=== PATIENT | female | born 2000 | race Two or more races ===

== ENCOUNTER 2020-09-12 22:20 | Observation (INO) | payer OTHER, SELFPAY ==
[~2020-09-12] VITALS: Ht 162.6 cm; Wt 102.5 kg
[2020-09-12 23:24] VITALS: BP 123/59
[2020-09-12] MEDS ORDERED: BRE5 PO (23:45)
[2020-09-12] MEDS ORDERED: FERR-212 PO (23:45)
[2020-09-12] MEDS ORDERED: PNV91TAB8 PO (23:45)
--- NOTE | 2020-09-13 06:58 | NUR ---
PATIENT HAS BEEN SCREENED AND CATEGORIZED LOW NUTRITION RISK. PATIENT WILL BE SEEN WITHIN 7 DAYS OF ADMISSION. 09/20/20 GAGE LOZOYA MS, RDN
== END 2020-09-13 09:30 | disposition home or self-care (01) ==
LOC: MLD 22:20
PROVIDERS: ADMIT Obstetrics & Gynecology; ATTEND Obstetrics & Gynecology
DX: O62.9 Abnormality of forces of labor, unspecified (principal); Z3A.33 33 weeks gestation of pregnancy
CPT/HCPCS: 76815; G0378

== ENCOUNTER 2020-11-06 10:02 | Observation (INO) | payer OTHER ==
[~2020-11-06] VITALS: Ht 162.6 cm; Wt 108.0 kg
[~2020-11-06 10:02] MED LIST: BRE5 PO; FERR-212 PO; PNV91TAB8 PO
--- NOTE | 2020-11-06 10:19 | NUR ---
PATIENT HAS BEEN SCREENED AND CATEGORIZED LOW NUTRITION RISK. PATIENT WILL BE SEEN WITHIN 7 DAYS OF ADMISSION. 11/13/[address]
[2020-11-06 10:33] VITALS: BP 129/69
== END 2020-11-06 14:25 | disposition home or self-care (01) ==
LOC: MLD 10:02
PROVIDERS: ADMIT Obstetrics & Gynecology; ATTEND Obstetrics & Gynecology
DX: O62.9 Abnormality of forces of labor, unspecified (principal); Z3A.37 37 weeks gestation of pregnancy
CPT/HCPCS: 76815; G0378; 59025; 81000

== ENCOUNTER 2020-11-13 15:43 | Inpatient (IN) | payer OTHER, SELFPAY ==
[~2020-11-13] VITALS: Ht 162.6 cm; Wt 111.6 kg
[~2020-11-13 15:43] MED LIST changes: -BRE5 PO
[2020-11-13] MEDS ORDERED: METHYLERGONOVINE 0.2 MG/ML AMP IM PRN (16:40)
[2020-11-13] MEDS ORDERED: CARBOPROST 250 MCG/ML AMP IM PRN (16:40)
[2020-11-13] MEDS ORDERED: LACTATED RINGERS 500 ML IV SCH (16:40)
[2020-11-13] MEDS ORDERED: OXYTOCIN 10 UNITS/ML VIAL IM SCH (16:40)
[2020-11-13 17:41] LABS: BASOPHILS # (AUTO) 0.1 K/uL (0.00-0.22); BASOPHILS % (AUTO) 0.8 % (0.0-2.0); EOSINOPHILS % (AUTO) 0.4 % (0.0-4.0); HEMATOCRIT 38.2 % (36-48); HEMOGLOBIN 12.7 g/dL (12.0-16.0); LYMPHOCYTES # (AUTO) 2.4 K/uL (2.5-16.5); LYMPHOCYTES % (AUTO) 20.9 % (20.5-51.1); MEAN CORPUSCULAR HEMOGLOBIN 29 pg (27-31); MEAN CORPUSCULAR HGB CONC 33 g/dL (33-37); MEAN CORPUSCULAR VOLUME 87.7 fL (80-94); MONOCYTES # (AUTO) 0.8 K/uL (0.8-1.0); MONOCYTES % (AUTO) 7.1 % (1.7-9.3); NEUTROPHILS # (AUTO) 8.2 K/uL (1.8-7.7); NEUTROPHILS % (AUTO) 70.8 % (42.2-75.2); PLATELET COUNT (AUTO) 278 K/uL (140-450); RED BLOOD CELL COUNT(AUTO) 4.35 MIL/uL (4.20-5.40); RED CELL DISTRIBUTION WIDTH 14.7 % (11.6-13.7); WHITE BLOOD COUNT (AUTO) 11.6 K/uL (4.5-11.0)
[2020-11-13 17:58] LABS: APPEARANCE,URINE CLEAR (CLEAR); BILIRUBIN,URINE NEGATIVE (NEGATIVE); BLOOD, URINE NEGATIVE (NEGATIVE); COLOR,URINE YELLOW (YELLOW); LEUKOCYTE ESTERASE ,URINE 1+ (NEGATIVE); NITRITE, URINE NEGATIVE (NEGATIVE); UGLUCOSE NEGATIVE (NEGATIVE)
[2020-11-13 18:02] LABS: ALBUMIN 2.8 g/dL (3.4-5.0); CARBON DIOXIDE 20.8 mmol/L (21-32); CREATININE 0.7 mg/dL (0.6-1.3); POTASSIUM 3.8 mmol/L (3.5-5.1); TOTAL BILIRUBIN 0.3 mg/dL (0.0-1.0)
[2020-11-13 18:07] LABS: RBC,URINE 0-5 /HPF (0-5)
[2020-11-13 18:40] VITALS: BP 131/69
[2020-11-13] MEDS: MISOPROSTOL 25 MCG TAB VG SCH (20:50)
[2020-11-13] MEDS ORDERED: OXYTOCIN 20 UNITS in LACTATED RINGERS 1,000 ML IV SCH (21:05)
[2020-11-14] MEDS: MISOPROSTOL 25 MCG TAB VG SCH
[2020-11-14] MEDS ORDERED: OXYTOCIN 20 UNITS/LR PREMIX 1,000 ML IV ONE (03:17)
[2020-11-14] MEDS: LACTATED RINGERS 1,000 ML IV SCH ×4 (03:34→17:09)
[2020-11-14] MEDS ORDERED: ROPIVACAINE 0.2%/NS PREMIX 200 ML EPI ONE (08:44)
[2020-11-14] MEDS ORDERED: ROPIVACAINE 0.2%/NS PREMIX 100 ML EPI SCH (09:20)
[2020-11-14] MEDS ORDERED: AMPICILLIN 2,000 MG VIAL ONE ×2 (18:00→23:18)
[2020-11-14] MEDS: AMPICILLIN 2,000 MG in NACL 0.9% 100 ML IV SCH (18:07)
[2020-11-15] MEDS: NALBUPHINE 10 MG/ML AMP IVP PRN ×2 (00:29→05:29)
[2020-11-15] MEDS: PROMETHAZINE 25 MG/ML VIAL IVP PRN ×2 (00:30→05:28)
[2020-11-15] MEDS: LACTATED RINGERS 1,000 ML IV SCH ×2 (02:39→08:40)
[2020-11-15] MEDS ORDERED: ROPIVACAINE 0.2%/NS PREMIX 200 ML EPI ONE (04:49)
[2020-11-15] MEDS ORDERED: AMPICILLIN 2,000 MG VIAL ONE (05:11)
[2020-11-15] MEDS: AMPICILLIN 2,000 MG in NACL 0.9% 100 ML IV SCH (06:00)
[2020-11-15] MEDS ORDERED: LIDOCAINE MPF 1% 10 MG/ML VIAL INJ SCH (07:35)
--- NOTE | 2020-11-15 08:18 | NUR ---
PATIENT HAS BEEN SCREENED AND CATEGORIZED LOW NUTRITION RISK. PATIENT WILL BE SEEN WITHIN 7 DAYS OF ADMISSION. 11/20/20 NIC WHITAKER MBA, RD
[2020-11-15] MEDS ORDERED: LIDOCAINE 1% 500 MG/50 ML VIAL ONE (09:58)
[2020-11-15] MEDS ORDERED: OXYTOCIN 20 UNITS/LR PREMIX 1,000 ML IV ONE (11:34)
[2020-11-15] MEDS ORDERED: OXYTOCIN 20 UNITS in LACTATED RINGERS 1,000 ML IV SCH (13:10)
[2020-11-15] MEDS ORDERED: MEASLES, MUMPS, AND RUBELLA 1 VIAL SQVAC PRN (13:10)
[2020-11-15] MEDS ORDERED: ACETAMINOPHEN 325 MG TAB PO PRN (13:10)
[2020-11-15] MEDS ORDERED: DOCUSATE SODIUM 100 MG GELCAP PO PRN (13:10)
[2020-11-15] MEDS ORDERED: IBUPROFEN 800 MG TAB PO SCH (13:10)
[2020-11-15] MEDS ORDERED: IBUPROFEN 800 MG TAB ONE (13:14)
[2020-11-15] MEDS: IBUPROFEN 600 MG TAB PO PRN (20:00)
[2020-11-16] MEDS: IBUPROFEN 600 MG TAB PO PRN (04:11)
[2020-11-16] MEDS ORDERED: MEASLES, MUMPS, AND RUBELLA 1 VIAL SQVAC PRN (07:55)
[2020-11-16 08:30] LABS: BASOPHILS # (AUTO) 0.1 K/uL (0.00-0.22); BASOPHILS % (AUTO) 0.6 % (0.0-2.0); EOSINOPHILS # (AUTO) 0.1 K/uL (0-0.4); EOSINOPHILS % (AUTO) 0.8 % (0.0-4.0); HEMOGLOBIN 11.1 g/dL (12.0-16.0); LYMPHOCYTES # (AUTO) 4.1 K/uL (2.5-16.5); LYMPHOCYTES % (AUTO) 30.3 % (20.5-51.1); MEAN CORPUSCULAR HEMOGLOBIN 30 pg (27-31); MEAN CORPUSCULAR HGB CONC 34 g/dL (33-37); MEAN CORPUSCULAR VOLUME 88.4 fL (80-94); MONOCYTES # (AUTO) 0.9 K/uL (0.8-1.0); MONOCYTES % (AUTO) 6.8 % (1.7-9.3); NEUTROPHILS # (AUTO) 8.2 K/uL (1.8-7.7); NEUTROPHILS % (AUTO) 61.5 % (42.2-75.2); PLATELET COUNT (AUTO) 193 K/uL (140-450); RED BLOOD CELL COUNT(AUTO) 3.74 MIL/uL (4.20-5.40); RED CELL DISTRIBUTION WIDTH 14.6 % (11.6-13.7); WHITE BLOOD COUNT (AUTO) 13.4 K/uL (4.5-11.0)
[2020-11-17] MEDS: IBUPROFEN 600 MG TAB PO PRN (00:51)
[2020-11-20] MEDS ORDERED: LEVO750T51 PO (14:01)
== END 2020-11-17 21:09 | disposition home or self-care (01) | DRG 560 ==
LOC: MLD 15:43 → MFCC 11-15 14:00
PROVIDERS: ADMIT Obstetrics & Gynecology; ATTEND Obstetrics & Gynecology
PROC: 10D07Z6 Extraction of Products of Conception, Vacuum, Via Natural or Artificial Opening (ICD-10-PCS; principal; 2020-11-15)
PROC: 3E0P7VZ Introduction of Hormone into Female Reproductive, Via Natural or Artificial Opening (ICD-10-PCS; 2020-11-15)
PROC: 3E0234Z Introduction of Serum, Toxoid and Vaccine into Muscle, Percutaneous Approach (ICD-10-PCS; 2020-11-15)
PROC: 3E0R3BZ Introduction of Anesthetic Agent into Spinal Canal, Percutaneous Approach (ICD-10-PCS; 2020-11-15)
PROC: 00HU33Z Insertion of Infusion Device into Spinal Canal, Percutaneous Approach (ICD-10-PCS; 2020-11-15)
DX: O80 Encounter for full-term uncomplicated delivery (principal); Z20.822 Contact with and (suspected) exposure to COVID-19; Z23 Encounter for immunization; Z37.0 Single live birth; Z3A.39 39 weeks gestation of pregnancy
CPT/HCPCS: 36415; 51702; 76805; 80053; 81001; 85025; 86592; 86886; 86900; 86901; 87086; 90715; J0290; J2001; J2300; J2550; J2590; J2795; J7120